=== PATIENT | female | born 1955 | race Asian ===

== ENCOUNTER 2019-04-23 10:43 | Emergency (ER) | payer BC ==
[2019-04-23 11:11] VITALS: BP 147/91
[2019-04-23] MEDS ORDERED: HYOS0.1264 PO (11:26)
[2019-04-23] MEDS ORDERED: ONDA4TAB7 PO (11:26)
[2019-04-23] MEDS ORDERED: PROM118S9 PO (11:26)
--- NOTE | 2019-04-23 11:27 | PHYS DOC ---
Past History Past Medical History: Hypertension, Other Additional Past Medical Histor: cancer, chronic kidney disease Past Surgical History: Appendectomy, Cholecystectomy, Other Additional Past Surgical Histo: right ovary, bilateral mastectomy Smoking: Non-smoker Alcohol Use: None Drug Use: None Adult General Chief Complaint Chief Complaint: FLU SYMPTOM HPI HPI Patient is a 63-year-old female presents with body aches, nausea and vomiting for the past 4 days which improved 2 days ago, and diarrhea. No blood in the sto ol or emesis. Subjective fever, with a maximum temperature of 100.0. No chest pain or palpitations. She has been able to tolerate malcolm lucy. She works as a bilingual teacher aide. She has not yet received the flu vaccine this season. There has been nasal congestion present as well.[] Review of Systems Review of Systems Constitutional: See history of present illness[] Eyes: Denies change in visual acuity, redness, or eye pain [] HENT: Nasal congestion, sore throat, and right ear pain/fullness are present.[] Respiratory: Denies cough or shortness of breath [] Cardiovascular: No chest pain or palpitations[] GI: See history of present illness[] : Denies dysuria or hematuria [] Musculoskeletal: Denies back pain or joint pain [] Integument: Denies rash or skin lesions [] Neurologic: Denies headache, focal weakness or sensory changes [] Endocrine: Denies polyuria or polydipsia [] All other systems were reviewed and found to be within normal limits, except as documented in this note. Physical Exam Physical Exam Constitutional: Well developed, well nourished, no acute distress, non-toxic appearance. [] HENT: Normocephalic, atraumatic, bilateral external ears normal, TMs are clear without any blood or fluid, right TM has a bulge. No mastoid tenderness. Oropharynx moist, no oral exudates, posterior oral pharyngeal streaking is present. Nose normal. [] Eyes: PERRLA, EOMI, conjunctiva normal, no discharge. [] Neck: Normal range of motion, no tenderness, supple, no stridor. No meningismus, no cervical lymphadenopathy[] Cardiovascular:Heart rate regular rhythm, no murmur [] Lungs & Thorax: Bilateral breath sounds clear to auscultation [] Abdomen: Bowel sounds normal, soft, no tenderness, no masses, no pulsatile masses. [] Skin: Warm, dry, no erythema, no rash. [] Back: No tenderness, no CVA tenderness. [] Extremities: No tenderness, no cyanosis, no clubbing, ROM intact, no edema. [] Neurologic: Alert and oriented X 3, normal motor function, normal sensory function, no focal deficits noted. [] Psychologic: Affect normal, judgement normal, mood normal. [] EKG EKG [] Radiology/Procedures Radiology/Procedures [] Course & Med Decision Making Course & Med Decision Making Pertinent Labs and Imaging studies reviewed. (See chart for details) Medical decision making: Patient appears to have a flulike illness. Not obtaining a flu test due to being outside the window for starting Tamiflu. We will treat with symptomatic care. Patient is nontoxic in appearance. Do not think there is any significant electrolyte abnormality. Will hold on NSAIDs given her chronic kidney disease. 1 patient arrived, was placed in bed, and tolerated exam well. Discussed findings and plan with the patient. She voiced understanding. All questions were answered area did she was discharged in improved condition.[] Dragon Disclaimer Dragon Disclaimer This electronic medical record was generated, in whole or in part, using a voice recognition dictation system. Departure Departure: Impression: Primary Impression: Influenza-like illness Disposition: 01 HOME, SELF-CARE Condition: IMPROVED Referrals: JELANI LINCOLN MD (PCP) Follow-up in 2 days Patient Instructions: Diet for Diarrhea, Adult, Nausea and Vomiting Additional Instructions: Drink plenty of fluids, frequent small sips. No fatty foods, no milk, and no pepper for the next 48 hours. For the next 48 hours eat a diet rich in carbohydrates with foods such as bananas, rice, applesauce, and toast. Take Tylenol as needed, as instructed on the packaging, for pain or fever. Follow-up with your regular doctor in 2 days. Return to the ER if unable to tolerate liquids, blood in the stool or emesis, or any other concerns. Scripts Ondansetron Hcl (ZOFRAN) 4 Mg Tablet 1 TAB PO Q6HRS for nausea or vomiting, #20 TAB Prov: HANNAHJEANNEERNESTO DO 04/23/19 D-Methorphan Hb/Prometh Hcl (PROMETHAZINE-DM SYRUP) 118 Ml Syrup 5 ML PO PRN Q4HRS for CONGESTION, #120 ML Prov: ERNESTO LAURA DO 04/23/19 Hyoscyamine Sulfate (LEVSIN) 0.125 Mg Tablet 0.125 MG PO QID for abdominal pain/cramping, #30 TAB Prov: ERNESTO LAURA DO 04/23/19 ERNESTO LAURA DO Apr 23, 2019 11:27
== END 2019-04-23 11:31 | disposition home or self-care (01) ==
LOC: ER 10:43
DX: J11.1 Influenza due to unidentified influenza virus with other respiratory manifestations (principal); I12.9 Hypertensive chronic kidney disease with stage 1 through stage 4 chronic kidney disease, or unspecified chronic kidney disease; N18.9 Chronic kidney disease, unspecified
CPT/HCPCS: 99283